=== PATIENT | female | born 1965 | race Caucasian/White ===

== ENCOUNTER → 2017-11-02 | Outpatient (CLI) | payer MEDICAID ==
[~2017-11-02] MED LIST: ALBU18HF PO; CHON250C PO; GLUC15006 PO; MULT-658 PO; OMEG1CAP6 PO; PARO7.5C PO; premarin PO
== END ==
LOC: RAD 15:12
PROVIDERS: ATTEND Emergency Medicine
DX: Z02.9 Encounter for administrative examinations, unspecified (principal)